=== PATIENT | female | born 1960 | race Caucasian/White ===

== ENCOUNTER 2018-02-16 01:07 | Emergency (ER) | payer MEDICAID, OTHER ==
[~2018-02-16] VITALS: Ht 160 cm; Wt 77.1 kg
--- NOTE | 2018-02-16 01:23 | NUR ---
Patient drove to the ER, ambulated with unsteady gait, c/o spiderbite in 3 places on left lower ext, reports to be in a lot of pain 10/10, warm and tender on the left lower ext from the bite, pt reports dizziness.
--- NOTE | 2018-02-16 01:27 | NUR ---
Dr. Crowe at bedside for MSE.
[2018-02-16] MEDS ORDERED: methylPREDNISolone SOD SUCC 125 MG/2 ML VIAL IV ONE (01:30)
[2018-02-16] MEDS ORDERED: FAMOTIDINE. 20 MG/2 ML VIAL IV ONE ×2 (01:30→01:36)
[2018-02-16] MEDS ORDERED: ALBUTEROL SULFATE 2.5 MG/3 ML NEBU NEB ONE (01:30)
[2018-02-16] MEDS ORDERED: diphenhydrAMINE 50 MG/1 ML VIAL IV ONE (01:30)
[2018-02-16] MEDS ORDERED: methylPREDNISolone SOD SUCC 125 MG/2 ML VIAL ONE (01:35)
[2018-02-16] MEDS ORDERED: diphenhydrAMINE 50 MG/1 ML VIAL ONE (01:35)
[2018-02-16] MEDS ORDERED: ALBUTEROL SULFATE 2.5 MG/3 ML NEBU ONE (01:36)
--- NOTE | 2018-02-16 02:10 | NUR ---
Patient states pain on left leg a little better, pain now 5/10.
[2018-02-16] MEDS ORDERED: SULFAMETH/TRIMETH 800/160 MG TABLET PO ONE (02:30)
[2018-02-16] MEDS ORDERED: SULFAMETH/TRIMETH 800/160 MG TABLET ONE (02:38)
--- NOTE | 2018-02-16 03:00 | NUR ---
Patient sleeping in bed, no acute signs of distress.
--- NOTE | 2018-02-16 04:25 | NUR ---
Patient discharged to home in stable conditon. Patient states she's feeling better, denies dizziness and shortness of breath. Written and verbal after care instructions given. Patient verbalizes understanding of instructions. Patient ambulated out of ER with steady gait, no acute signs of distress, VSS, all belongings taken, IV site discontinued.
[2018-02-16 04:33] VITALS: BP 129/69
== END 2018-02-16 04:25 | disposition home or self-care (01) ==
LOC: ER 01:10
DX: S80.862A Insect bite (nonvenomous), left lower leg, initial encounter (principal); T78.40XA Allergy, unspecified, initial encounter; E03.9 Hypothyroidism, unspecified; E11.9 Type 2 diabetes mellitus without complications; W57.XXXA Bitten or stung by nonvenomous insect and other nonvenomous arthropods, initial encounter; Y93.89 Activity, other specified; Y92.89 Other specified places as the place of occurrence of the external cause; Y99.8 Other external cause status
CPT/HCPCS: 94640; A4663; J1200; J2930; J3490